=== PATIENT | male | born 1960 | race Two or more races ===

== ENCOUNTER 2024-06-26 00:12 | Inpatient (IN) | payer OTHER, MEDICAID ==
[~2024-06-26] VITALS: Ht 182.9 cm; Wt 67.0 kg
--- NOTE | 2024-06-26 01:48 | ED.PDOC ---
Musculoskeletal HPI Comments 64-year-old Male who came to ER via EMS for left hip pain. Patient states he was taking out the trash cans earlier today when he lost his balance and fell bad in his left hip. Patient states he was unable to get up after the fall. No head trauma or loss of consciousness noted. Chief Complaint: Lower Extremity Time Seen by MD: 01:47 Primary Care Provider: UNKNOWN NAME Reviewed Notes: Nurses Notes Allergies: Coded Allergies: NO KNOWN ALLERGIES (Unverified , 06/26/24) Information Source: Patient Mode of Arrival: EMS Location: Left Extremity Location: Hip Timing: Hours Prehospital treatment: None Severity: Moderate Able to Move Extremity: Yes Bear Weight: Limited Pain: Moderate Hand Dominance: Right Mechanism: Blunt Trauma Circumstances: Fall Onset of Symptoms: After Trauma Symptoms: Swelling, Pain History of: Hip Operation Associated signs and symptoms: Hip pain (left) Past Medical History PAST MEDICAL HISTORY: HTN Surgical History (Other): Right hip surgery Family History Family History: Reviewed,noncontributory to illness Social History Smoker: Non-Smoker Alcohol: Denies ETOH Use Drugs: Denies Drug Use Lives In: Home Constitutional: denies: chills, diaphoresis, fatigue, fever, malaise, sweats, weakness, others EENTM: denies: blurred vision, double vision, ear bleeding, ear discharge, ear drainage, ear pain, ear ringing, eye pain, eye redness, hearing loss, mouth pain, mouth swelling, nasal discharge, nose bleeding, nose congestion, nose pain, photophobia, tearing, throat pain, throat swelling, voice changes, others Respiratory: denies: cough, hemoptysis, orthopnea, SOB at rest, shortness of breath, SOB with excertion, stridor, wheezing, others Cardiovascular: denies: chest pain, dizzy spells, diaphoresis, Dyspnea on exertion, edema, irregular heart beat, left arm pain, lightheadedness, palpitations, PND, syncope, others Gastrointestinal: denies: abdomen distended, abdominal pain, blood streaked bowels, constipated, diarrhea, dysphagia, difficulty swallowing, hematemesis, melena, nausea, poor appetite, poor fluid intake, rectal bleeding, rectal pain, vomiting, others Genitourinary: denies: burning, dysuria, flank pain, frequency, hematuria, incontinence, penile discharge, penile sore, pain, testicle pain, testicle swelling, urgency, others Neurological: denies: dizziness, fainting, headache, left sided numbness, left sided weakness, numbness, paresthesia, pre-existing deficit, right sided numbness, right sided weakness, seizure, speech problems, tingling, tremors, weakness, others Musculoskeletal: reports: joint pain (Left hip); denies: back pain, gout, joint swelling, muscle pain, muscle stiffness, neck pain, others Integumetry: denies: bruises, change in color, change in hair/nails, dryness, laceration, lesions, lumps, rash, wounds, others Allergic/Immunocompromised: denies: Difficulty Healing, Frequent Infections, Hives, Itching, others Hematologic/Lymphatic: denies: anemia, blood clots, easy bleeding, easy bruising, swollen glands, others Endocrine: denies: excessive hunger, excessive sweating, excessive thirst, excessive urination, flushing, intolerance to cold, intolerance to heat, unexplained weight gain, unexplained weight loss, others Psychiatric: denies: anxiety, bipolar disorder, depression, hopeless, panic disorder, schizophrenia, sleepless, suicidal, others Physical Exam General Appearance: No Apparent Distress, Normal HEENT: Normal ENT Inspection, Pharynx Normal, TMs Normal Neck: Full Range of Motion, Non-Tender, Normal, Normal Inspection Respiratory: Chest Non-Tender, Lungs Clear, No Accessory Muscle Use, No Respiratory Distress, Normal Breath Sounds Cardiovascular: No Edema, No JVD, No Murmur, No Gallop, Normal Peripheral Puls es, Regular Rate/Rhythm Breast Exam: Deferred Gastrointestinal: No Organomegaly, Non Tender, No Pulsatile Mass, Normal Bowel Sounds, Soft Genitalia: Deferred Pelvic: Deferred Rectal: Deferred Extremities: No calf tenderness, Normal capillary refill, Normal inspection, Normal range of motion, Non-tender, No pedal edema, Tender (Left hip tender) Musculoskeletal : Apperance: Normal Neurologic: Alert, biomedical electronics technician II-XII nml as Tested, No Motor Deficits, Normal Affect, Normal Mood, No Sensory Deficits Cerebellar Function: Normal Reflexes: Normal Skin: Dry, Normal Color, Warm Lymphatic: No Adenopathy Was a procedure done? Was a procedure done?: No Differential Diagnosis EXT Differential Diagnosis: Fracture, Sprain, Strain X-Ray, Labs, Meds, VS Vital Signs Date Time Temp Pulse Resp B/P (MAP) Pulse Ox O2 Delivery O2 Flow Rate FiO2 06/26/24 00:17 98.7 62 18 110/73 (85) 97 Time of 1ST Reevaluation: 01:44 Reevaluation 1ST: Unchanged Patient Education/Counseling: Diagnosis, Treatment Family Education/Counseling: No Family Present Departure 1 Departure Time of Disposition: 02:57 (Patient with a left femur fracture. We will admit patient for orthopedic consultation) Impression: Primary Impression: Closed left femoral fracture Qualified Codes: S72.042A - Displaced fracture of base of neck of left femur, initial encounter for closed fracture Disposition: ADMITTED INPATIENT Admit to: Med Surg Condition: Guarded Critical Care Note Critical Care Time?: No Stability Stability form required: No Heart Score Heart Score: Heart Score Response (Comments) Value History N/A 0 EKG N/A 0 Age N/A 0 Risk Factors N/A 0 Troponin N/A 0 Total 0 I personally scribed for YAEL DAVID MD ([email or web address]) on 06/26/24 at 01:48. Electronically submitted by Modesto Gloria ([email or web address]). YAEL DAVID MD Jun 26, 2024 01:48
--- NOTE | 2024-06-26 02:22 | DVH ---
CLINICAL HISTORY: hip pain fall TECHNIQUE: CT of the abdomen and pelvis was performed without intravenous contrast. This exam was per formed according to our departmental dose optimization program. Up-to-date CT equipment and radiation dose reduction techniques are utilized as appropriate. WID: COMPARISON: None FINDINGS: Lower Thorax: Normal-sized heart without pericardial effusion. Linear bibasilar scarring or atelectas is. Liver and Biliary system: Prior cholecystectomy, otherwise unremarkable. Spleen: Unremarkable. Adrenal Glands and Kidneys: Normal adrenal glands. Tiny nonobstructing bilateral renal calculi. No hy dronephrosis. Pancreas and Retroperitoneum: Atrophic pancreas containing numerous calcifications. No grossly enlarg ed retroperitoneal lymph nodes. Aorta and Major Vessels: Aortoiliac vessels are normal in caliber with mild calcified atherosclerotic plaque. Bowel, Mesentery and Peritoneal space: The small and large bowel loops are normal caliber. Normal katarina endix. No free air or fluid collection. Pelvis: Streak artifact from the hardware in the right hip slightly limits evaluation of the pelvis. No grossly enlarged pelvic lymph nodes. Moderately distended urinary bladder. Abdominal wall and Osseous Structures: There are 4 screws which are partially threaded through the ri ght femoral neck. The hardware components are intact. There is bony demineralization. Minor lumbar s pondylosis. There is a nondisplaced fracture of the base of the left femoral neck with coxa vera angu lation of the proximal left femur. IMPRESSION: 1. Nondisplaced fracture of the base of the left femoral neck with coxa vera angulation of the proxim al left femur. 2. There are 4 partially threaded screws through the right femoral neck without hardware complication . 3. Chronic calcific pancreatitis. 4. Tiny nonobstructing bilateral renal calculi.
[2024-06-26] MEDS: ONDANSETRON HCL 4 MG/2 ML VIAL IV ONE (03:09)
[2024-06-26] MEDS: MORPHINE SULFATE 4 MG/ML SYR/VIAL IV ONE (03:10)
[2024-06-26 03:28] LABS: Basophils # (auto) 0 10 ^3/uL (0-0.2); Basophils % (auto) 0.2 % (0.0-2.0); Eosinophils # (auto) 0.3 10 ^3/uL (0-0.8); Eosinophils % (auto) 3.4 % (0.0-7.0); Hematocrit 34.5 % (41.0-53.0); Hemoglobin 11.6 g/dL (13.5-17.5); Lymphocytes # (auto) 0.5 10 ^3/uL (0.4-5.4); Mean Corpuscular Hemoglobin 31.1 pg (28.0-32.0); Mean Corpuscular Hgb Conc. 33.8 g/dL (32.0-36.0); Mean Corpuscular Volume 92.1 fL (80.0-100.0); Monocytes # (auto) 0.5 10 ^3/uL (0-1.3); Monocytes % (auto) 5.8 % (0.0-12.0); Neutrophils % (auto) 84.6 % (37.0-80.0); Platelet Count (auto) 157 10^3/uL (140-450); Red Blood Cells 3.74 10^6/uL (4.5-5.90); Red Cell Distribution Width 13.2 % (11.8-14.3); White Blood Cell 8.3 10^3/uL (4.4-10.8)
[2024-06-26] MEDS: SODIUM CHLORIDE 0.9% 1,000 ML IV ONE (03:34)
[2024-06-26 03:37] LABS: Chloride 113 mmol/L (98-107); Potassium 3.2 mmol/L (3.5-5.1); Sodium 143 mmol/L (136-145)
[2024-06-26 03:38] LABS: Anion Gap 5 (5-15); Calcium 8.6 mg/dL (8.7-10.4); Carbon Dioxide 25 mmol/L (20-31)
--- NOTE | 2024-06-26 03:42 | DVHHP2 ---
History of Present Illness Reason for Visit: Closed left femoral fracture History of Present Illness The patient is a 64-year-old male with past medical history of hypertension who presented to [facility] ED for evaluation fall injury. Patient reports he was taking out the trash cans earlier today when he lost his balance and fell hitting in his left hip. Patient developed left hip pain, states he was unable to get up after the fall. Patient was seen and evaluated in the ED, laboratory data shows WBC 8.3, hemoglobin 11.6, hematocrit 34.5, platelets 157, sodium 143, potassium 3.2, BUN 9, creatinine 0.95, glucose 134, calcium 8.6, blood pressure 110/73, heart rate 74, temperature 98.7 F, O2 saturation 97% on room air. Abdomen/pelvis CT revealing nondisplaced fracture of the base of the left femoral neck with coxa vera angulation of the proximal left femur; there are 4 partially threaded screws through the right femoral neck with heart where complication. Please see medication orders section in the computer. On my assessment, patient denied chest pain, no headache, no dizziness, no loss of consciousness, no diaphoresis, no shortness of breaths, no nausea, no vomiting, fever, no chills. Patient was admitted for further evaluation and medical management. Past Medical History Hypertension Past Surgical History Right hip surgery Family History Reviewed, noncontributory to the management of this case. Past Social History The patient lives at home, denies smoking, alcohol or illicit drugs abuse. Review of Systems Constitutional: Yes: Weakness; No: Fever, Chills, Sweats, Malaise, Other Eyes: No: Pain, Vision change, Conjunctivae inflammation, Eyelid inflammation, Other, Redness ENT: No: Ear pain, Ear discharge, Nose pain, Nose discharge, Nose congestion, Mouth pain, Mouth swelling, Throat pain, Throat swelling, Other Respiratory: No: Cough, Dry, Shortness of breath, SOB with excertion, Wheezing, Hemoptysis, Pleuritic Pain, Sputum, Wheezing, Other Cardiovascular: No: Chest Pain, Palpitations, Orthopnea, Paroxysmal Noc. Dyspnea, Edema, Lt Headedness, Other Gastrointestinal: No: Nausea, Vomiting, Abdominal Pain, Diarrhea, Constipation, Melena, Hematochezia, Other Genitourinary: No Dysuria, No Frequency, No Incontinence, No Hematuria, No Retention, No Other Musculoskeletal: other (Joint pain, left hip.); No: neck pain, shoulder pain, arm pain, back pain, hand pain, leg pain, foot pain Skin: No: Rash, Lesions, Jaundice, Bruising, Other Neurological: No: Weakness, Numbness, Incoordination, Change in speech, C onfusion, Seizures, Other Allergies: Coded Allergies: NO KNOWN ALLERGIES (Unverified , 06/26/24) Exam Vital Signs Vital Signs Date Time Temp Pulse Resp B/P (MAP) Pulse Ox O2 Delivery O2 Flow Rate FiO2 06/26/24 03:10 74 16 127/79 06/26/24 00:17 98.7 97 General Appearance: Alert, Oriented X3, Cooperative, No acute distress HEENT: Atraumatic, PERRLA, EOMI, Mucous membr. moist/pink Respiratory: Clear to auscultation, Normal air movement Cardiovascular: Regular rate, Normal S1, Normal S2, No murmurs Abdominal: Normal bowel sounds, Soft, No tenderness, No hepatospenomegaly, No masses Extremities: No clubbing, No cyanosis, Normal pulses, Other (Reports left hip tenderness.) Skin: No rashes, No breakdown, No significant lesion Neuro: Normal speech, Normal tone, Sensation intact, Cranial nerves 3-12 NL, Reflexes 2+, Other (Unsteady gait) Psych/Mental Status: Mental status NL, Mood NL Labs/Xrays Labs Test 06/26/24 03:15 Range/Units White Blood Count 8.3 4.4-10.8 10^3/uL Red Blood Count 3.74 L 4.5-5.90 10^6/uL Hemoglobin 11.6 L 13.5-17.5 g/dL Hematocrit 34.5 L 41.0-53.0 % Mean Corpuscular Volume 92.1 80.0-100.0 fL Mean Corpuscular Hemoglobin 31.1 28.0-32.0 pg Mean Corpuscular Hemoglobin Concent 33.8 32.0-36.0 g/dL Red Cell Distribution Width 13.2 11.8-14.3 % Platelet Count 157 140-450 10^3/uL Mean Platelet Volume 7.4 6.9-10.8 fL Neutrophils (%) (Auto) 84.6 H 37.0-80.0 % Lymphocytes (%) (Auto) 6.0 L 10.0-50.0 % Monocytes (%) (Auto) 5.8 0.0-12.0 % Eosinophils (%) (Auto) 3.4 0.0-7.0 % Basophils (%) (Auto) 0.2 0.0-2.0 % Neutrophils # (Auto) 7.0 1.6-8.6 10 ^3/uL Lymphocytes # (Auto) 0.5 0.4-5.4 10 ^3/uL Monocytes # (Auto) 0.5 0-1.3 10 ^3/uL Eosinophils # (Auto) 0.3 0-0.8 10 ^3/uL Basophils # (Auto) 0 0-0.2 10 ^3/uL Nucleated Red Blood Cells 0.0 % PATIENT: SHAHRIAR HUMPHREY JACCT: [id number] UNIT: [id number] : 1960 LOC: ER ROOM / BED: / AGE / SEX: 64 / M ADM STATUS: REG ER SERVICE 003 ORDERING PHYSICIAN: SHARLENE CASTILLO DO PROCEDURE(s): ABPL - CT AB PEL WO CON-NO ORAL OR IV REASON: hip pain fall ORDER NUMBER(s): [id number], ACCESSION NUMBER(s): [id number] CLINICAL HISTORY: hip pain fall TECHNIQUE: CT of the abdomen and pelvis was performed without intravenous contrast. This exam was performed according to our departmental dose optimization program. Up-to-date CT equipment and radiation dose reduction techniques are utilized as appropriate. WID: COMPARISON: None FINDINGS: Lower Thorax: Normal-sized heart without pericardial effusion. Linear bibasilar scarring or atelectasis. Liver and Biliary system: Prior cholecystectomy, otherwise unremarkable. Spleen: Unremarkable. Adrenal Glands and Kidneys: Normal adrenal glands. Tiny nonobstructing bilateral renal calculi. No hydronephrosis. Pancreas and Retroperitoneum: Atrophic pancreas containing numerous calcifications. No grossly enlarged retroperitoneal lymph nodes. Aorta and Major Vessels: Aortoiliac vessels are normal in caliber with mild calcified atherosclerotic plaque. Bowel, Mesentery and Peritoneal space: The small and large bowel loops are normal caliber. Normal appendix. No free air or fluid collection. Pelvis: Streak artifact from the hardware in the right hip slightly limits evaluation of the pelvis. No grossly enlarged pelvic lymph nodes. Moderately distended urinary bladder. Abdominal wall and Osseous Structures: There are 4 screws which are partially th readed through the right femoral neck. The hardware components are intact. There is bony demineralization. Minor lumbar spondylosis. There is a nondisplaced fracture of the base of the left femoral neck with coxa vera angulation of the proximal left femur. IMPRESSION: 1. Nondisplaced fracture of the base of the left femoral neck with coxa vera angulation of the proximal left femur. 2. There are 4 partially threaded screws through the right femoral neck without hardware complication. 3. Chronic calcific pancreatitis. 4. Tiny nonobstructing bilateral renal calculi. Assessment/Plan Assessment/Plan Fall with injury Closed left femoral fracture Hypokalemia Hyperglycemia Generalized weakness Nondisplaced fracture of base of neck of left femur, initial encounter for closed fracture Plan 1. Admit to telemetry unit 2. Breathing treatment 3. Pain control management 4. Management of fluids and electrolytes 5. Consultation for orthopedic 6. Diagnostic tests abdomen/pelvis CT 7. DVT prophylaxis-on Lovenox 8. Repeat labs CBC, CMP in a.m. 9. Continue with current medical management 10. Treatment plan discussed with patient and RN. Patient verbalized understanding. Plan discussed with: Patient, Other (RN) Problem List: (1) Fall with injury (2) Closed left femoral fracture (3) Hypokalemia (4) Hyperglycemia (5) Generalized weakness (6) Nondisplaced fracture of base of neck of left femur, initial encounter for closed fracture Date of Service: Jun 26, 2024 Billing Provider: TREVIN HODGES DNP Common Visit Codes: [id number]-[id number] INP/OBS CARE (HIGH) TREVIN HODGES DNP Jun 26, 2024 03:42
[2024-06-26 03:43] LABS: BUN/Creatinine Ratio 9.5 (10.0-20.0); Blood Urea Nitrogen 9 mg/dL (9-23); Glucose 134 mg/dL (74-106)
[2024-06-26] MEDS ORDERED: MORPHINE SULFATE INJ 2 MG/ml SYRG IV PRN (03:45)
[2024-06-26] MEDS ORDERED: NITROGLYCERIN 0.4 MG SL TAB SL PRN (03:45)
[2024-06-26] MEDS ORDERED: ONDANSETRON HCL 4 MG/2 ML VIAL IV PRN (03:45)
[2024-06-26] MEDS ORDERED: ACETAMINOPHEN 325 MG TAB PO PRN (03:45)
--- NOTE | 2024-06-26 03:52 | DVH ---
Examination: CXRP Clinical Indication: pre-op Comparison: None. Technique: Frontal radiograph of the chest was obtained. Findings: Lungs are clear and well expanded with no pulmonary infiltrate. There is no pneumothorax. The cardiomediastinal silhouette is within normal limits. No acute osseous abnormality is seen. Bilateral costophrenic angles are not imaged. Impression: 1. No acute cardiopulmonary disease is seen. 2. Bilateral costophrenic angles are not imaged. 3. Suggest follow-up. Electronically Signed 06/26/2024 03:45 Sruthi Iverson
[2024-06-26 03:53] LABS: INR 1.11 (0.9-1.15); Prothrombin Time 11.7 sec (9.3-11.8)
[2024-06-26] MEDS: SODIUM CHLORIDE 0.9% 1,000 ML IV SCH (04:23)
[2024-06-26] MEDS: POTASSIUM CHL 20 Meq TABLET PO ONE (05:12)
[2024-06-26 05:25] VITALS: PULSE 63; RESP 19; O2SAT 95
[2024-06-26] MEDS: MORPHINE SULFATE INJ 2 MG/ml SYRG IV PRN (08:41)
--- NOTE | 2024-06-26 10:07 | DVH ---
CLINICAL INDICATION: Fall TECHNIQUE: XY L FEMUR XRAY Comparison: None FINDINGS/IMPRESSION: Left intertrochanteric fracture is noted which appears nondisplaced.
--- NOTE | 2024-06-26 10:10 | DVHPN2 ---
Subjective Continues to complain of left hip pain Reviewed: Care Plan, H&P, Labs, Medications, Previous Orders, Radiology Changes from previous H/P or p: No Changes Objective Vitals Vital Signs Date Time Temp Pulse Resp B/P (MAP) Pulse Ox O2 Delivery O2 Flow Rate FiO2 06/26/24 09:50 64 15 127/62 (83) 98 06/26/24 05:25 Room Air* 0 21 06/26/24 00:29 98.7 98.7 Intake/Output Intake and Output 06/26/24 07:00 Intake Total 1120 ml Balance 1120 ml Intake IV Total 1120 ml General Appearance: Alert, Oriented X3, Cooperative, mild distress HEENT: Atraumatic Lungs: Clear to auscultation, Normal air movement Cardiovascular: Regular rate, Normal S1, Normal S2 Abdomen: Normal bowel sounds, Soft, No tenderness Extremities: Other (Swollen tender left hip and upper thigh) Neuro: Normal speech, Cranial nerves 3-12 NL Psych/Mental Status: Mental status NL, Mood NL Medications Current Medications Medications Dose Ordered Sig/Jonah Route Start Time Stop Time Status Last Admin Dose Admin Sodium Chloride 1,000 ml @ 60 mls/hr [id number] IV 06/26/24 03:45 06/26/24 04:23 60 MLS/HR Acetaminophen/ Hydrocodone Bitart 1 tab Q4HP PRN PO 06/26/24 03:45 Ondansetron HCl 4 mg Q4HP PRN IV 06/26/24 03:45 Docusate Sodium 100 mg BIDPRN PRN PO 06/26/24 03:45 Enoxaparin Sodium 40 mg DAILY SC 06/26/24 10:00 Acetaminophen 650 mg Q6HP PRN PO 06/26/24 03:45 Morphine Sulfate 2 mg Q4HPRN PRN IV 06/26/24 03:45 06/26/24 08:41 2 MG Nitroglycerin 0.4 mg Q5MINP PRN SL 06/26/24 03:45 Morphine Sulfate 2 mg Q30M PRN IV 06/26/24 03:45 Laboratory Results Laboratory Tests 06/26/24 03:15 Chemistry Test 06/26/24 03:15 Calcium Level 8.6 mg/dL (8.7-10.4) L Coagulation Test 06/26/24 03:15 Prothrombin Time 11.7 sec (9.3-11.8) Prothrombin Time INR 1.11 (0.9-1.15) Activated Partial Thromboplast Time 24.5 SEC (24.5-34.5) Labs and/or images reviewed: Labs reviewed by me, Image(s) reviewed by me Assessment/Plan Assessment/Plan A 64-year-old male patient; with past medical history of diabetes mellitus type 2 and right hip surgery; who presented to the emergency department after a fall and was found to have left hip fracture. #Nondisplaced left intertrochanteric fracture due to mechanical fall #Left hip pain due to fracture #Mechanical fall -Fall precautions -Orthopedic surgery consulted; surgery is planned tomorrow; ordered NPO after midnight -Continue pain management as needed -Continue DVT prophylaxis -Consulted Physical therapy and [facility] for discharge planning #Normocytic anemia; unclear if it is inflammatory or caused by the fracture -No signs of active bleeding at this time -Continue monitoring CBC daily #Suspected LOUIE; most likely due to vasomotor nephropathy #Hypokalemia with hypocalcemia in the setting of suspected LOUIE -Continue IV fluids -Replace electrolytes as needed -Avoid nephrotoxic agents -Continue monitoring #Diabetes mellitus type 2 -Started the patient on insulin sliding scale with hypoglycemia protocol -Continue monitoring Advanced care planning discussed with the patient for 22 minutes; full code. This medical document was created using an electronic medical record system with computerized dictation system. Although this document has been carefully reviewed, there might still be some phonetic and typographical errors. These areas are purely typographical due to imperfections of the software programs, and do not reflect any compromise in the patient's medical care. Plan discussed with: Patient, Other (Nurse) Date of Service: Jun 26, 2024 Billing Provider: CLEMENT HINES MD Common Visit Codes: 44850-[id number] INP/OBS CARE(HIGH) Secondary Visit Codes: 35349-[id number] CARE PLAN 30 MINUTES (22 minutes) CLEMENT HINES MD Jun 26, 2024 10:10
[2024-06-26] MEDS: ENOXAPARIN SOD 40 MG/0.4 ML SYRINGE SC SCH (10:57)
[2024-06-26] MEDS ORDERED: DEXTROSE (50%) 50ML SYRG IV PRN (15:00)
[2024-06-26] MEDS: ACCU-CHEK COMFORT CURVE STRIP VI SCH (17:26)
[2024-06-26] MEDS: InsuLIN REG 1unit/0.01ml Soln (100units/ml) SC SCH (17:29)
[2024-06-26] MEDS ORDERED: INSLISPI SC (20:03)
[2024-06-26] MEDS ORDERED: INSU100I4 SC (20:03)
[2024-06-26] MEDS ORDERED: INSU1INJ19 SC (20:04)
[2024-06-26 20:06] VITALS: PULSE 71; RESP 18
[2024-06-26 21:00] VITALS: BP 124/68; PULSE 67; RESP 18; TEMP 98.5; O2SAT 97
[2024-06-27] VITALS (25 sets, daily range): BP systolic 85–135; BP diastolic 49–79; PULSE 16–99; RESP 10–20; TEMP 96.8–100.2; O2SAT 65–100
[2024-06-27] MEDS: ceFAZolin 2 GM/D5W100ml 100 ML IV ONE (06:51)
[2024-06-27] MEDS ORDERED: MORPHINE SULF PF 5 MG/10 ML VIAL ONE (07:09)
[2024-06-27] MEDS ORDERED: fentaNYL CITRATE 100 MCG/2 ML VL ONE (07:10)
[2024-06-27] MEDS: BUPIVACAINE HCL 0.25% P/F 10 ML VIAL ONE (07:15)
[2024-06-27] MEDS ORDERED: MORPHINE SULFATE 4 MG/ML SYR/VIAL IV PRN ×2 (07:15)
[2024-06-27] MEDS ORDERED: MIDAZOLAM HCL 2MG/2ML 2ml VIAL (1mg/ml) ONE (07:15)
--- NOTE | 2024-06-27 07:15 | DVHPN2 ---
Date of Progress Note Date of Progress Note Date of Progress Note: 06/27/24 Date of Admission Date of Admission Date of Admission: Date of Admission: Jun 26, 2024 at 03:41 Overnight Events Overnight events Overnight Events Pt NPO, mackenzie pain on PO meds Past Medical History Past Medical History Past Medical History refer to H and P, hypokaemia, hypergylcemia, weakness Past Surgical History Past Surgical History Past Surgical History Right hip percutaneous pinnning for femoral neck fracture. Social History Social History Social History non-contirbutory Allergies: Coded Allergies: NO KNOWN ALLERGIES (Unverified , 06/26/24) Home Meds Reported Medications Insulin Glargine (Basaglar Kwikpen) 100 Unit/Ml Inj, 100 UNIT SC, INJ 06/26/24 Insulin Lispro (Human) (Humalog) 100 Unit/Ml Inj, 100 UNIT SC, INJ 06/26/24 Current Medications Current Medications Medications (Trade) Dose Ordered Sig/Jonah Route PRN Reason Start Time Stop Time Status Last Admin Enoxaparin Sodium (Lovenox) 40 mg DAILY SC 06/26/24 10:00 06/26/24 10:57 Diagnostic Test (Pha) (Accu-Chek Comfort Curve T) 1 strip ACHS 06/26/24 17:00 06/27/24 05:55 Insulin Human Regular (InsuLIN R) ACHS SC 06/26/24 17:00 06/27/24 05:55 Dextrose 50 ml UD PRN IV Blood Sugar LESS THAN 60 06/26/24 15:00 Morphine Sulfate 2 mg Q2HPRN PRN IV BREAKTHROUGH PAIN (7-10) 06/27/24 07:15 06/27/24 07:16 UNV Morphine Sulfate 2 mg Q4H PRN IV BREAKTHRU PAIN SCALE 7-10 06/27/24 07:15 06/27/24 11:16 UNV Physical Examination General Examination: Last Vital sign Vital Signs Date Time Temp Pulse Resp B/P (MAP) Pulse Ox O2 Delivery O2 Flow Rate FiO2 06/27/24 05:00 97.2 96 16 106/61 (76) 65 97.2 06/26/24 20:06 Room Air* 0 21 General: General: No apparent distress, appears comfortable. Cooperative. Extremities: Left hip pain in left groin with PROM NVI skin intact Skin: intact Neurological Examination: Neurological Examination: Mental Status: Cranial Nerves: Motor Examination: Reflexes: Sensory: Coordination: Gait: NVI Labs: Labs: Laboratory Tests Test 06/26/24 03:15 06/26/24 17:25 06/26/24 22:14 06/27/24 05:44 Range/Units White Blood Count 8.3 4.4-10.8 10^3/uL Red Blood Count 3.74 L 4.5-5.90 10^6/uL Hemoglobin 11.6 L 13.5-17.5 g/dL Hematocrit 34.5 L 41.0-53.0 % Mean Corpuscular Volume 92.1 80.0-100.0 fL Mean Corpuscular Hemoglobin 31.1 28.0-32.0 pg Mean Corpuscular Hemoglobin Concent 33.8 32.0-36.0 g/dL Red Cell Distribution Width 13.2 11.8-14.3 % Platelet Count 157 140-450 10^3/uL Mean Platelet Volume 7.4 6.9-10.8 fL Neutrophils (%) (Auto) 84.6 H 37.0-80.0 % Lymphocytes (%) (Auto) 6.0 L 10.0-50.0 % Monocytes (%) (Auto) 5.8 0.0-12.0 % Eosinophils (%) (Auto) 3.4 0.0-7.0 % Basophils (%) (Auto) 0.2 0.0-2.0 % Neutrophils # (Auto) 7.0 1.6-8.6 10 ^3/uL Lymphocytes # (Auto) 0.5 0.4-5.4 10 ^3/uL Monocytes # (Auto) 0.5 0-1.3 10 ^3/uL Eosinophils # (Auto) 0.3 0-0.8 10 ^3/uL Basophils # (Auto) 0 0-0.2 10 ^3/uL Nucleated Red Blood Cells 0.0 % Prothrombin Time 11.7 9.3-11.8 sec Prothrombin Time INR 1.11 0.9-1.15 Activated Partial Thromboplast Time 24.5 24.5-34.5 SEC Sodium Level 143 136-145 mmol/L Potassium Level 3.2 L 3.5-5.1 mmol/L Chloride Level 113 H 98-107 mmol/L Carbon Dioxide Level 25 20-31 mmol/L Anion Gap 5 5-15 Blood Urea Nitrogen 9 9-23 mg/dL Creatinine 0.95 0.700-1.30 mg/dL Glomerular Filtration Rate Calc 89 >90 mL/min BUN/Creatinine Ratio 9.5 L 10.0-20.0 Serum Glucose 134 H 74-106 mg/dL Calcium Level 8.6 L 8.7-10.4 mg/dL POC Glucose 254 H 227 H 220 H 70-106 mg/dl Test 06/27/24 06:10 Range/Units White Blood Count Pending Red Blood Count Pending Hemoglobin Pending Hematocrit Pending Mean Corpuscular Volume Pending Mean Corpuscular Hemoglobin Pending Mean Corpuscular Hemoglobin Concent Pending Red Cell Distribution Width Pending Platelet Count Pending Mean Platelet Volume Pending Neutrophils (%) (Auto) Pending Lymphocytes (%) (Auto) Pending Monocytes (%) (Auto) Pending Basophils (%) (Auto) Pending Neutrophils # (Auto) Pending Lymphocytes # (Auto) Pending Monocytes # (Auto) Pending Sodium Level Pending Potassium Level Pending Chloride Level Pending Carbon Dioxide Level Pending Anion Gap Pending Blood Urea Nitrogen Pending Creatinine Pending Glomerular Filtration Rate Calc Pending BUN/Creatinine Ratio Pending Serum Glucose Pending Calcium Level Pending Total Bilirubin Pending Aspartate Amino Transferase (AST) Pending Alanine Aminotransferase (ALT) Pending Alkaline Phosphatase Pending Total Protein Pending Albumin Pending Imaging Imaging: XR 06/26/24 Left hip 2V left proximal femur intertorchanteric/ basilar neck fracture Assessment/Plan Assessment/Plan Assessment and Plan:Kodak Butler is a 64 year old male who presents with left hip intertrochanteric / basilar neck fracture 1) pre-op clearance 2) NPO 3) surgery, ORIF left proximal femur fracture Plan discussed with: Patient KODAK RUIZ MD Jun 27, 2024 07:15
[2024-06-27 07:18] LABS: Basophils # (auto) 0 10 ^3/uL (0-0.2); Basophils % (auto) 0.5 % (0.0-2.0); Eosinophils # (auto) 0.1 10 ^3/uL (0-0.8); Eosinophils % (auto) 1.6 % (0.0-7.0); Hematocrit 34.1 % (41.0-53.0); Hemoglobin 11.4 g/dL (13.5-17.5); Lymphocytes % (auto) 15.3 % (10.0-50.0); Mean Corpuscular Hemoglobin 31.7 pg (28.0-32.0); Mean Corpuscular Hgb Conc. 33.5 g/dL (32.0-36.0); Mean Corpuscular Volume 94.7 fL (80.0-100.0); Monocytes # (auto) 0.6 10 ^3/uL (0-1.3); Monocytes % (auto) 9.4 % (0.0-12.0); Neutrophils # (auto) 4.8 10 ^3/uL (1.6-8.6); Neutrophils % (auto) 73.2 % (37.0-80.0); Platelet Count (auto) 131 10^3/uL (140-450); Red Cell Distribution Width 13.6 % (11.8-14.3); White Blood Cell 6.6 10^3/uL (4.4-10.8)
[2024-06-27 07:41] LABS: Alanine Aminotransferase 170 U/L (7-40); Albumin 2.9 g/dL (3.2-4.8); Alkaline Phosphatase 226 U/L (46-116); Anion Gap 5 (5-15); Aspartate Aminotransferase 110 U/L (13-40); BUN/Creatinine Ratio 10.9 (10.0-20.0); Blood Urea Nitrogen 11 mg/dL (9-23); Calcium 8.3 mg/dL (8.7-10.4); Carbon Dioxide 25 mmol/L (20-31); Chloride 105 mmol/L (98-107); Glucose 197 mg/dL (74-106)
[2024-06-27 07:42] LABS: Bilirubin, Total 0.7 mg/dL (0.2-1.0); Total Protein 5.2 g/dL (5.7-8.2)
[2024-06-27 07:46] LABS: Sodium 135 mmol/L (136-145)
--- NOTE | 2024-06-27 08:29 | DVHOP2 ---
Operative Report - 2 Report Details Date: 06/27/24 Preop Diagnosis: Left femur intertrochanteric fractrue Postop Diagnosis: same Surgeon: Kodak Sanz MD Agricultural Pilot: none Anesthesiologist: Dr Robbins Anesthesia: Regional Drains: none Implant: IM hip nii with two proximal screws and one static distal interlock Consent: The patient was informed of the risks and benefits of the procedure. These include but are not limited to complications of anesthesia, postoperative infection, incomplete relief of symptoms, recurrence of symptoms, damage to blood vessels, nerves and tendons, deep venous thrombosis, pulmonary embolism and possible need for repeat surgery in the future. Complications: none Estimated Blood Loss: 50 cc Fluids: 1 L crystalloid Findings: above Indications for Surgery: unstable fracture of left proxiaml femur with requisite bedrest without fixation and comordbidities associated with bedrest Name of Procedure Performed open reduction internal fixation of left intertrochanteric femur fracture Procedure Details Procedure Details: Patient brought into the operating room given Ancef 1 g IV piggyback preoperatively received spinal anesthetic without complication by Dr. Thompson got T1 GA transferred to the fracture table well-padded peroneal post left leg well- padded boot for traction right leg well leg ohara well padded saved about placed around waist on C-arm fluoro used to achieve reduction fracture with traction internal rotation flexion 80 adduction a C-arm fluoro taken AP and lateral view showing good overall alignment of fracture sterile prep amputate his prep and drape of left hip and lower extremity time-out performed confirmation left side correct side after review of operative consent history and physical and my initials on left buttock 2 cm to 3 cm incision made 5 cm proximal to tip of greater trochanter sharp dissection through skin down to deep fascia sharp division of deep fascia blunt dissection down to the tip of greater trochanter guide pin placed into tip of tip of greater trochanter C-arm fluoro confirmed good placement of guide pin and she reaming performed then placement of intramedullary nii then proximal screw guide positioned and 2 guide pins placed into femoral neck and then 2 screws placed into femoral neck under C-arm fluoro guidance then distal interlock screw placed with screw screw guide C-arm fluoro taken an AP and lateral view showing anatomic alignment of fracture and good placement of hardware irrigation then performed excellent hemostasis noted closure of deep fascia with 0 Vicryl subcutaneous 2-0 Vicryl 2-0 Vicryl skin luan fluffs ABD paper tape no drainage specimens complications. Specimen: none Condition Stable Disposition Still a Patient KODAK SANZ MD Jun 27, 2024 08:29
[2024-06-27] MEDS: D5W/SOD CHL 0.45%/KCL 20MEQ 1,000 ML IV SCH (12:03)
--- NOTE | 2024-06-27 13:12 | DVHPN2 ---
Subjective Underwent repair; pain controlled with pain killers; enjoying his meal Reviewed: Care Plan, H&P, Labs, Medications, Previous Orders, Radiology Changes from previous H/P or p: Changes Objective Vitals Vital Signs Date Time Temp Pulse Resp B/P (MAP) Pulse Ox O2 Delivery O2 Flow Rate FiO2 06/27/24 11:32 61 16 98 06/27/24 10:38 98.9 104/71 (82) 98.9 06/27/24 08:35 Room Air 06/27/24 08:17 10.0 100 Intake/Output Intake and Output 06/27/24 07:00 Intake Total 105 ml Output Total 700 ml Balance -595 ml Intake Oral 105 ml Output Urine Total 700 ml # Voids 2 General Appearance: Alert, Oriented X3, Cooperative, No acute distress HEENT: Atraumatic Lungs: Clear to auscultation, Normal air movement Cardiovascular: Regular rate, Normal S1, Normal S2 Abdomen: Normal bowel sounds, Soft, No tenderness Extremities: Other (Clean surgical wound over left hip with no bleeding/discharge) Neuro: Normal speech, Cranial nerves 3-12 NL Psych/Mental Status: Mental status NL, Mood NL Medications Current Medications Medications Dose Ordered Sig/Jonah Route Start Time Stop Time Status Last Admin Dose Admin Sodium Chloride 1,000 ml @ 60 mls/hr [id number] IV 06/26/24 03:45 06/26/24 20:25 60 MLS/HR Acetaminophen/ Hydrocodone Bitart 1 tab Q4HP PRN PO 06/26/24 03:45 Ondansetron HCl 4 mg Q4HP PRN IV 06/26/24 03:45 Docusate Sodium 100 mg BIDPRN PRN PO 06/26/24 03:45 Enoxaparin Sodium 40 mg DAILY SC 06/26/24 10:00 06/27/24 11:46 40 MG Acetaminophen 650 mg Q6HP PRN PO 06/26/24 03:45 Morphine Sulfate 2 mg Q4HPRN PRN IV 06/26/24 03:45 06/27/24 03:33 2 MG Nitroglycerin 0.4 mg Q5MINP PRN SL 06/26/24 03:45 Morphine Sulfate 2 mg Q30M PRN IV 06/26/24 03:45 Diagnostic Test (Pha) 1 strip ACHS 06/26/24 17:00 06/27/24 11:24 1 STRIP Insulin Human Regular ACHS SC 06/26/24 17:00 06/27/24 11:21 4 UNITS Dextrose 50 ml UD PRN IV 06/26/24 15:00 Potassium Chloride/Dextrose/ Sod Cl 1,000 ml @ 150 mls/hr Q6H40M IV 06/27/24 08:30 06/27/24 12:03 150 MLS/HR Cefazolin Sodium 50 ml @ 50 mls/hr Q8HR IV 06/27/24 14:00 06/27/24 22:59 Cancel Cefazolin Sodium 50 ml @ 50 mls/hr Q8HR IV 06/27/24 14:00 Cefazolin Sodium 50 ml @ 50 mls/hr Q8HR IV 06/27/24 14:00 06/27/24 22:59 Laboratory Results Laboratory Tests 06/27/24 06:10 Chemistry Test 06/27/24 06:10 Albumin 2.9 g/dL (3.2-4.8) L Calcium Level 8.3 mg/dL (8.7-10.4) L Total Protein 5.2 g/dL (5.7-8.2) L LFT Test 06/27/24 06:10 Alanine Aminotransferase (ALT) 170 U/L (7-40) H Alkaline Phosphatase 226 U/L (46-116) H Aspartate Amino Transferase (AST) 110 U/L (13-40) H Total Bilirubin 0.7 mg/dL (0.2-1.0) Labs and/or images reviewed: Labs reviewed by me, Image(s) reviewed by me Assessment/Plan Assessment/Plan A 64-year-old male patient; with past medical history of diabetes mellitus type 2 and right hip surgery; who presented to the emergency department after a fall and was found to have left hip fracture. #Nondisplaced left intertrochanteric fracture due to mechanical fall s/p open reduction internal fixation of left intertrochanteric femur fracture this morning #Left hip pain due to fracture #Mechanical fall #Elevated LFTs due to the fracture -Fall precautions -Orthopedic surgery on board -Continue pain management as needed -Continue DVT prophylaxis -Consulted Physical therapy and Supervisor [employer] for discharge planning -Avoid hepatotoxic agents -Continue monitoring #Normocytic anemia; unclear if it is inflammatory or caused by the fracture -No signs of active bleeding at this time -Continue monitoring CBC daily #Suspected LOUIE; most likely due to vasomotor nephropathy; worsened #Hypokalemia with hypocalcemia in the setting of suspected LOUIE; hypokalemia resolved; hypocalcemia worsened -Continue IV fluids -Replace electrolytes as needed -Avoid nephrotoxic agents -Continue monitoring #Diabetes mellitus type 2 -Insulin sliding scale with hypoglycemia protocol -Continue monitoring This medical document was created using an electronic medical record system with computerized dictation system. Although this document has been carefully reviewed, there might still be some phonetic and typographical errors. These areas are purely typographical due to imperfections of the software programs, and do not reflect any compromise in the patient's medical care. Plan discussed with: Patient, Other (Nurse) My Orders Orders - CLEMENT HINES MD Procedure Category Date Status Time Glucose Blood PHA 06/26/24 In Process (Accu-Chek Comfort 17:00 Insulin R (Human) PHA 06/26/24 In Process (Insulin R) 17:00 Dextrose 50% Syringe PHA 06/26/24 In Process 15:00 * Supervisor [employer] CONS 06/26/24 Transmitted Consult Pt Request For Service PT 06/26/24 Logged 15:02 Comprehensive LAB 06/28/24 Verified Metabolic Panel 04:00 Date of Service: Jun 27, 2024 Billing Provider: CLEMENT HINES MD Common Visit Codes: [id number] INP/OBS CARE(HIGH) CLEMENT HINES MD Jun 27, 2024 13:12
--- NOTE | 2024-06-27 13:21 | DVH ---
EXAM: XY L HIP 1V XRAY, XY C ARM FLUOROSCOPY UP TO 60MIN HISTORY: LEFT HIP NAIL FLUOROSCOPY TIME: 35.6 seconds Dose: 5.0 mGy FLUOROSCOPY IMAGES: 4 TECHNIQUE: Intraoperative radiographs of the left hip were obtained. COMPARISON: None FINDINGS/IMPRESSION: Refer to intraoperative report for further evaluation.
[2024-06-27] MEDS ORDERED: ceFAZolin 1GM/50ML 50 ML IV SCH (14:00)
[2024-06-27] MEDS: ceFAZolin 1GM/50ML 50 ML IV SCH ×2 (14:00→18:26)
[2024-06-27] MEDS: HYDROcodone-ACET 5/325MG TAB PO PRN (16:04)
[2024-06-28] VITALS (19 sets, daily range): BP systolic 102–128; BP diastolic 52–71; PULSE 58–92; RESP 16–22; TEMP 97.1–99.7; O2SAT 94–99
[2024-06-28 06:11] LABS: Basophils # (auto) 0 10 ^3/uL (0-0.2); Basophils % (auto) 0.2 % (0.0-2.0); Eosinophils # (auto) 0.1 10 ^3/uL (0-0.8); Eosinophils % (auto) 1.8 % (0.0-7.0); Hematocrit 28.6 % (41.0-53.0); Hemoglobin 9.7 g/dL (13.5-17.5); Lymphocytes # (auto) 0.8 10 ^3/uL (0.4-5.4); Lymphocytes % (auto) 10.9 % (10.0-50.0); Mean Corpuscular Hemoglobin 32.1 pg (28.0-32.0); Mean Corpuscular Hgb Conc. 33.8 g/dL (32.0-36.0); Mean Corpuscular Volume 94.7 fL (80.0-100.0); Monocytes # (auto) 0.9 10 ^3/uL (0-1.3); Monocytes % (auto) 12.9 % (0.0-12.0); Neutrophils # (auto) 5.3 10 ^3/uL (1.6-8.6); Neutrophils % (auto) 74.2 % (37.0-80.0); Nucleated Red Blood Cells % 0.1 %; Platelet Count (auto) 111 10^3/uL (140-450); Red Blood Cells 3.02 10^6/uL (4.5-5.90); Red Cell Distribution Width 13.3 % (11.8-14.3); White Blood Cell 7.1 10^3/uL (4.4-10.8)
[2024-06-28 06:27] LABS: Alanine Aminotransferase 96 U/L (7-40); Albumin 2.6 g/dL (3.2-4.8); Alkaline Phosphatase 196 U/L (46-116); Anion Gap 4 (5-15); Aspartate Aminotransferase 42 U/L (13-40); BUN/Creatinine Ratio 12.7 (10.0-20.0); Bilirubin, Total 0.4 mg/dL (0.2-1.0); Blood Urea Nitrogen 13 mg/dL (9-23); Calcium 7.7 mg/dL (8.7-10.4); Carbon Dioxide 25 mmol/L (20-31); Chloride 105 mmol/L (98-107); Potassium 4.6 mmol/L (3.5-5.1); Sodium 134 mmol/L (136-145); Total Protein 4.3 g/dL (5.7-8.2)
[2024-06-28 06:33] LABS: Glucose 352 mg/dL (74-106)
--- NOTE | 2024-06-28 11:26 | DVHPN2 ---
Subjective Complaining of left hip pain Reviewed: Care Plan, H&P, Labs, Medications, Previous Orders, Radiology Changes from previous H/P or p: Changes Objective Vitals Vital Signs Date Time Temp Pulse Resp B/P (MAP) Pulse Ox O2 Delivery O2 Flow Rate FiO2 06/28/24 10:29 72 16 114/66 06/28/24 09:32 95 06/28/24 09:00 99.7 99.7 06/27/24 20:00 Room Air* 0 21 Intake/Output Intake and Output 06/28/24 07:00 Intake Total 3530 ml Output Total 425 ml Balance 3105 ml Intake Oral 1380 ml IV Total 2150 ml Output Urine Total 425 ml # Voids 3 # Bowel Movements 1 General Appearance: Alert, Oriented X3, Cooperative, No acute distress HEENT: Atraumatic Lungs: Clear to auscultation, Normal air movement Cardiovascular: Regular rate, Normal S1, Normal S2 Abdomen: Normal bowel sounds, Soft, No tenderness Extremities: Other (Clean surgical wound over left hip with no bleeding/discharge) Neuro: Normal speech, Cranial nerves 3-12 NL Psych/Mental Status: Mental status NL, Mood NL Medications Current Medications Medications Dose Ordered Sig/Jonah Route Start Time Stop Time Status Last Admin Dose Admin Sodium Chloride 1,000 ml @ 60 mls/hr [id number] IV 06/26/24 03:45 06/27/24 18:26 60 MLS/HR Acetaminophen/ Hydrocodone Bitart 1 tab Q4HP PRN PO 06/26/24 03:45 06/28/24 02:50 1 TAB Ondansetron HCl 4 mg Q4HP PRN IV 06/26/24 03:45 Docusate Sodium 100 mg BIDPRN PRN PO 06/26/24 03:45 Enoxaparin Sodium 40 mg DAILY SC 06/26/24 10:00 06/28/24 10:00 40 MG Acetaminophen 650 mg Q6HP PRN PO 06/26/24 03:45 Morphine Sulfate 2 mg Q4HPRN PRN IV 06/26/24 03:45 06/28/24 09:59 2 MG Nitroglycerin 0.4 mg Q5MINP PRN SL 06/26/24 03:45 Morphine Sulfate 2 mg Q30M PRN IV 06/26/24 03:45 Diagnostic Test (Pha) 1 strip ACHS 06/26/24 17:00 06/28/24 09:53 1 STRIP Insulin Human Regular ACHS SC 06/26/24 17:00 06/28/24 06:45 8 UNITS Dextrose 50 ml UD PRN IV 06/26/24 15:00 Potassium Chloride/Dextrose/ Sod Cl 1,000 ml @ 150 mls/hr Q6H40M IV 06/27/24 08:30 06/28/24 11:16 150 MLS/HR Cefazolin Sodium 50 ml @ 50 mls/hr Q8HR IV 06/27/24 14:00 06/27/24 22:59 Cancel Cefazolin Sodium 50 ml @ 50 mls/hr Q8HR IV 06/27/24 14:00 06/28/24 05:31 50 MLS/HR Laboratory Results Laboratory Tests 06/28/24 05:20 Chemistry Test 06/28/24 05:20 Albumin 2.6 g/dL (3.2-4.8) L Calcium Level 7.7 mg/dL (8.7-10.4) L Total Protein 4.3 g/dL (5.7-8.2) L LFT Test 06/28/24 05:20 Alanine Aminotransferase (ALT) 96 U/L (7-40) H Alkaline Phosphatase 196 U/L (46-116) H Aspartate Amino Transferase (AST) 42 U/L (13-40) H Total Bilirubin 0.4 mg/dL (0.2-1.0) Labs and/or images reviewed: Labs reviewed by me, Image(s) reviewed by me Assessment/Plan Assessment/Plan A 64-year-old male patient; with past medical history of diabetes mellitus type 2 and right hip surgery; who presented to the emergency department after a fall and was found to have left hip fracture. #Nondisplaced left intertrochanteric fracture due to mechanical fall s/p open reduction internal fixation of left intertrochanteric femur fracture on 06/27/2024 #Left hip pain due to fracture #Mechanical fall #Elevated LFTs due to the fracture -Fall precautions -Orthopedic surgery on board -Continue pain management as needed -Continue DVT prophylaxis -Physical therapy and Flight Technician onboard -Avoid hepatotoxic agents -Continue monitoring #Normocytic anemia; unclear if it is inflammatory or caused by the fracture -Hemoglobin dropped; most likely related to the procedure -Continue monitoring CBC daily #Suspected LOUIE; most likely due to vasomotor nephropathy; worsened #Hypokalemia with hypocalcemia in the setting of suspected LOUIE; hypokalemia resolved; hypocalcemia worsened -Continue IV fluids -Replace electrolytes as needed -Avoid nephrotoxic agents -Continue monitoring #Diabetes mellitus type 2 -Insulin sliding scale with hypoglycemia protocol -Started long-acting insulin -Continue monitoring This medical document was created using an electronic medical record system with computerized dictation system. Although this document has been carefully reviewed, there might still be some phonetic and typographical errors. These areas are purely typographical due to imperfections of the software programs, and do not reflect any compromise in the patient's medical care. Plan discussed with: Patient, Other (Nurse) My Orders Orders - CLEMENT HINES MD Procedure Category Date Status Time Transfer Orders XFER 06/28/24 Transmitted 11:25 Complete Blood Count LAB 06/29/24 Verified 04:00 Comprehensive LAB 06/29/24 Verified Metabolic Panel 04:00 Date of Service: Jun 28, 2024 Billing Provider: CLEMENT HINES MD Common Visit Codes: [id number] INP/OBS CARE(HIGH) CLEMENT HINES MD Jun 28, 2024 11:26
[2024-06-28] MEDS: INSULIN LANTUS (GLARGINE) 1 /0.01ml (100units/ml) SC SCH (21:55)
[2024-06-28] MEDS: CALCIUM GLUC 1,000mg/50ml-NS 50 ML IV ONE (23:13)
[2024-06-29] VITALS (8 sets, daily range): BP systolic 97–134; BP diastolic 48–73; PULSE 68–98; RESP 15–20; TEMP 98.1–98.7; O2SAT 94–98
[2024-06-29] MEDS: DOCUSATE SOD 100 MG CAP PO PRN (00:49)
[2024-06-29 06:09] LABS: Alanine Aminotransferase 63 U/L (7-40); Albumin 2.8 g/dL (3.2-4.8); Alkaline Phosphatase 164 U/L (46-116); Anion Gap 6 (5-15); Aspartate Aminotransferase 27 U/L (13-40); BUN/Creatinine Ratio 8.3 (10.0-20.0); Bilirubin, Total 0.3 mg/dL (0.2-1.0); Blood Urea Nitrogen 9 mg/dL (9-23); Calcium 8.3 mg/dL (8.7-10.4); Carbon Dioxide 26 mmol/L (20-31); Chloride 102 mmol/L (98-107); Glucose 309 mg/dL (74-106); Potassium 4.5 mmol/L (3.5-5.1); Sodium 134 mmol/L (136-145)
--- NOTE | 2024-06-29 08:03 | DVHPN2 ---
Date of Progress Note Date of Progress Note Date of Progress Note: 06/29/24 Date of Admission Date of Admission Date of Admission: Date of Admission: Jun 26, 2024 at 03:41 Overnight Events Overnight events Overnight Events [facility] POs well, able to void Past Medical History Past Medical History Past Medical History refer to H and P, hypokaemia, hypergylcemia, weakness Past Surgical History Past Surgical History Past Surgical History Right hip percutaneous pinnning for femoral neck fracture. Social History Social History Social History non-contirbutory Allergies: Coded Allergies: NO KNOWN ALLERGIES (Unverified , 06/26/24) Home Meds Reported Medications Insulin Glargine (Basaglar Kwikpen) 100 Unit/Ml Inj, 100 UNIT SC, INJ 06/26/24 Insulin Lispro (Human) (Humalog) 100 Unit/Ml Inj, 100 UNIT SC, INJ 06/26/24 Current Medications Current Medications Medications (Trade) Dose Ordered Sig/Jonah Route PRN Reason Start Time Stop Time Status Last Admin Insulin Glargine (Lantus) 12 units HS SC 06/28/24 22:00 06/28/24 21:55 Physical Examination General Examination: Last Vital sign Vital Signs Date Time Temp Pulse Resp B/P (MAP) Pulse Ox O2 Delivery O2 Flow Rate FiO2 06/29/24 05:00 98.3 77 17 123/62 (82) 98 98.3 06/28/24 20:00 Room Air* 0 21 General: General: No apparent distress, appears comfortable. Cooperative. HEENT: Alert Oriented x4 Extremities: Left LE, mild groin pain with PROM, incision not draining Skin: intact, no drainage from left lateral hip surgical site Neurological Examination: Neurological Examination: Mental Status: Cranial Nerves: Motor Examination: Reflexes: Sensory: Coordination: Gait: NVI Labs: Labs: Laboratory Tests Test 06/26/24 03:15 06/26/24 17:25 06/26/24 22:14 06/27/24 05:44 Range/Units White Blood Count 8.3 4.4-10.8 10^3/uL Red Blood Count 3.74 L 4.5-5.90 10^6/uL Hemoglobin 11.6 L 13.5-17.5 g/dL Hematocrit 34.5 L 41.0-53.0 % Mean Corpuscular Volume 92.1 80.0-100.0 fL Mean Corpuscular Hemoglobin 31.1 28.0-32.0 pg Mean Corpuscular Hemoglobin Concent 33.8 32.0-36.0 g/dL Red Cell Distribution Width 13.2 11.8-14.3 % Platelet Count 157 140-450 10^3/uL Mean Platelet Volume 7.4 6.9-10.8 fL Neutrophils (%) (Auto) 84.6 H 37.0-80.0 % Lymphocytes (%) (Auto) 6.0 L 10.0-50.0 % Monocytes (%) (Auto) 5.8 0.0-12.0 % Eosinophils (%) (Auto) 3.4 0.0-7.0 % Basophils (%) (Auto) 0.2 0.0-2.0 % Neutrophils # (Auto) 7.0 1.6-8.6 10 ^3/uL Lymphocytes # (Auto) 0.5 0.4-5.4 10 ^3/uL Monocytes # (Auto) 0.5 0-1.3 10 ^3/uL Eosinophils # (Auto) 0.3 0-0.8 10 ^3/uL Basophils # (Auto) 0 0-0.2 10 ^3/uL Nucleated Red Blood Cells 0.0 % Prothrombin Time 11.7 9.3-11.8 sec Prothrombin Time INR 1.11 0.9-1.15 Activated Partial Thromboplast Time 24.5 24.5-34.5 SEC Sodium Level 143 136-145 mmol/L Potassium Level 3.2 L 3.5-5.1 mmol/L Chloride Level 113 H 98-107 mmol/L Carbon Dioxide Level 25 20-31 mmol/L Anion Gap 5 5-15 Blood Urea Nitrogen 9 9-23 mg/dL Creatinine 0.95 0.700-1.30 mg/dL Glomerular Filtration Rate Calc 89 >90 mL/min BUN/Creatinine Ratio 9.5 L 10.0-20.0 Serum Glucose 134 H 74-106 mg/dL Calcium Level 8.6 L 8.7-10.4 mg/dL POC Glucose 254 H 227 H 220 H 70-106 mg/dl Test 06/27/24 06:10 06/27/24 11:20 06/27/24 18:36 06/27/24 22:07 Range/Units White Blood Count 6.6 4.4-10.8 10^3/uL Red Blood Count 3.60 L 4.5-5.90 10^6/uL Hemoglobin 11.4 L 13.5-17.5 g/dL Hematocrit 34.1 L 41.0-53.0 % Mean Corpuscular Volume 94.7 80.0-100.0 fL Mean Corpuscular Hemoglobin 31.7 28.0-32.0 pg Mean Corpuscular Hemoglobin Concent 33.5 32.0-36.0 g/dL Red Cell Distribution Width 13.6 11.8-14.3 % Platelet Count 131 L 140-450 10^3/uL Mean Platelet Volume 7.9 6.9-10.8 fL Neutrophils (%) (Auto) 73.2 37.0-80.0 % Lymphocytes (%) (Auto) 15.3 10.0-50.0 % Monocytes (%) (Auto) 9.4 0.0-12.0 % Eosinophils (%) (Auto) 1.6 0.0-7.0 % Basophils (%) (Auto) 0.5 0.0-2.0 % Neutrophils # (Auto) 4.8 1.6-8.6 10 ^3/uL Lymphocytes # (Auto) 1.0 0.4-5.4 10 ^3/uL Monocytes # (Auto) 0.6 0-1.3 10 ^3/uL Eosinophils # (Auto) 0.1 0-0.8 10 ^3/uL Basophils # (Auto) 0 0-0.2 10 ^3/uL Nucleated Red Blood Cells 0.0 % Sodium Level 135 #L 136-145 mmol/L Potassium Level 4.0 3.5-5.1 mmol/L Chloride Level 105 98-107 mmol/L Carbon Dioxide Level 25 20-31 mmol/L Anion Gap 5 5-15 Blood Urea Nitrogen 11 9-23 mg/dL Creatinine 1.01 0.700-1.30 mg/dL Glomerular Filtration Rate Calc 83 >90 mL/min BUN/Creatinine Ratio 10.9 10.0-20.0 Serum Glucose 197 H 74-106 mg/dL Calcium Level 8.3 L 8.7-10.4 mg/dL Total Bilirubin 0.7 0.2-1.0 mg/dL Aspartate Amino Transferase (AST) 110 H 13-40 U/L Alanine Aminotransferase (ALT) 170 H 7-40 U/L Alkaline Phosphatase 226 H 46-116 U/L Total Protein 5.2 L 5.7-8.2 g/dL Albumin 2.9 L 3.2-4.8 g/dL POC Glucose 211 H 351 H 279 H 70-106 mg/dl Test 06/28/24 05:20 06/28/24 06:28 06/28/24 11:14 06/28/24 17:30 Range/Units White Blood Count 7.1 4.4-10.8 10^3/uL Red Blood Count 3.02 L 4.5-5.90 10^6/uL Hemoglobin 9.7 L 13.5-17.5 g/dL Hematocrit 28.6 #L 41.0-53.0 % Mean Corpuscular Volume 94.7 80.0-100.0 fL Mean Corpuscular Hemoglobin 32.1 H 28.0-32.0 pg Mean Corpuscular Hemoglobin Concent 33.8 32.0-36.0 g/dL Red Cell Distribution Width 13.3 11.8-14.3 % Platelet Count 111 L 140-450 10^3/uL Mean Platelet Volume 8.3 6.9-10.8 fL Neutrophils (%) (Auto) 74.2 37.0-80.0 % Lymphocytes (%) (Auto) 10.9 10.0-50.0 % Monocytes (%) (Auto) 12.9 H 0.0-12.0 % Eosinophils (%) (Auto) 1.8 0.0-7.0 % Basophils (%) (Auto) 0.2 0.0-2.0 % Neutrophils # (Auto) 5.3 1.6-8.6 10 ^3/uL Lymphocytes # (Auto) 0.8 0.4-5.4 10 ^3/uL Monocytes # (Auto) 0.9 0-1.3 10 ^3/uL Eosinophils # (Auto) 0.1 0-0.8 10 ^3/uL Basophils # (Auto) 0 0-0.2 10 ^3/uL Nucleated Red Blood Cells 0.1 % Sodium Level 134 L 136-145 mmol/L Potassium Level 4.6 3.5-5.1 mmol/L Chloride Level 105 98-107 mmol/L Carbon Dioxide Level 25 20-31 mmol/L Anion Gap 4 L 5-15 Blood Urea Nitrogen 13 9-23 mg/dL Creatinine 1.02 0.700-1.30 mg/dL Glomerular Filtration Rate Calc 82 >90 mL/min BUN/Creatinine Ratio 12.7 10.0-20.0 Serum Glucose 352 #H 74-106 mg/dL Calcium Level 7.7 L 8.7-10.4 mg/dL Total Bilirubin 0.4 0.2-1.0 mg/dL Aspartate Amino Transferase (AST) 42 H 13-40 U/L Alanine Aminotransferase (ALT) 96 H 7-40 U/L Alkaline Phosphatase 196 H 46-116 U/L Total Protein 4.3 L 5.7-8.2 g/dL Albumin 2.6 L 3.2-4.8 g/dL POC Glucose 325 H 369 H 267 H 70-106 mg/dl Test 06/28/24 21:29 06/29/24 05:28 06/29/24 05:30 Range/Units POC Glucose 342 H 301 H 70-106 mg/dl White Blood Count Pending Red Blood Count Pending Hemoglobin Pending Hematocrit Pending Mean Corpuscular Volume Pending Mean Corpuscular Hemoglobin Pending Mean Corpuscular Hemoglobin Concent Pending Red Cell Distribution Width Pending Platelet Count Pending Mean Platelet Volume Pending Neutrophils (%) (Auto) Pending Lymphocytes (%) (Auto) Pending Monocytes (%) (Auto) Pending Basophils (%) (Auto) Pending Neutrophils # (Auto) Pending Lymphocytes # (Auto) Pending Monocytes # (Auto) Pending Sodium Level 134 L 136-145 mmol/L Potassium Level 4.5 3.5-5.1 mmol/L Chloride Level 102 98-107 mmol/L Carbon Dioxide Level 26 20-31 mmol/L Anion Gap 6 5-15 Blood Urea Nitrogen 9 9-23 mg/dL Creatinine 1.08 0.700-1.30 mg/dL Glomerular Filtration Rate Calc 76 >90 mL/min BUN/Creatinine Ratio 8.3 L 10.0-20.0 Serum Glucose 309 H 74-106 mg/dL Calcium Level 8.3 L 8.7-10.4 mg/dL Total Bilirubin 0.3 0.2-1.0 mg/dL Aspartate Amino Transferase (AST) 27 13-40 U/L Alanine Aminotransferase (ALT) 63 H 7-40 U/L Alkaline Phosphatase 164 H 46-116 U/L Total Protein 5.0 L 5.7-8.2 g/dL Albumin 2.8 L 3.2-4.8 g/dL Assessment/Plan Assessment/Plan Assessment and Plan:Kodak Butler is a 64 year old male POD 2 s/p ORIF left proximal femur fracture, pt doing well 1) recommend home PT 2) clear for dc from ortho view 3) follow up ortho clinic 2 wks, XR 2V left hip 4) WBAT left LE with full assist Plan discussed with: Patient KODAK RUIZ MD Jun 29, 2024 08:03
[2024-06-29 11:47] LABS: Basophils # (auto) 0 10 ^3/uL (0-0.2); Basophils % (auto) 0.3 % (0.0-2.0); Eosinophils # (auto) 0.1 10 ^3/uL (0-0.8); Eosinophils % (auto) 1.2 % (0.0-7.0); Hematocrit 30.7 % (41.0-53.0); Hemoglobin 10.3 g/dL (13.5-17.5); Lymphocytes # (auto) 0.8 10 ^3/uL (0.4-5.4); Lymphocytes % (auto) 8.9 % (10.0-50.0); Mean Corpuscular Hemoglobin 31.5 pg (28.0-32.0); Mean Corpuscular Hgb Conc. 33.6 g/dL (32.0-36.0); Mean Corpuscular Volume 93.5 fL (80.0-100.0); Monocytes # (auto) 1.1 10 ^3/uL (0-1.3); Monocytes % (auto) 12.7 % (0.0-12.0); Neutrophils # (auto) 6.7 10 ^3/uL (1.6-8.6); Neutrophils % (auto) 76.9 % (37.0-80.0); Platelet Count (auto) 148 10^3/uL (140-450); Red Blood Cells 3.28 10^6/uL (4.5-5.90); Red Cell Distribution Width 13.3 % (11.8-14.3); White Blood Cell 8.8 10^3/uL (4.4-10.8)
--- NOTE | 2024-06-29 19:57 | DVHPN2 ---
Subjective In bed resting, pain controlled Reviewed: Care Plan, H&P, Labs, Medications, Previous Orders, Radiology Changes from previous H/P or p: No Changes Objective Vitals Vital Signs Date Time Temp Pulse Resp B/P (MAP) Pulse Ox O2 Delivery O2 Flow Rate FiO2 06/29/24 17:00 98.1 79 18 98/60 (73) 95 98.1 06/29/24 08:00 Room Air* 0 21 Intake/Output Intake and Output 06/29/24 05:00 Intake Total 3090 ml Output Total 875 ml Balance 2215 ml Intake Oral 2890 ml IV Total 200 ml Output Urine Total 875 ml # Voids 4 General Appearance: Alert, Oriented X3, Cooperative, No acute distress HEENT: Atraumatic Lungs: Clear to auscultation, Normal air movement Cardiovascular: Regular rate, Normal S1, Normal S2 Abdomen: Normal bowel sounds, Soft, No tenderness Extremities: Other (Clean surgical wound over left hip with no bleeding/discharge) Neuro: Normal speech, Cranial nerves 3-12 NL Psych/Mental Status: Mental status NL, Mood NL Medications Current Medications Medications Dose Ordered Sig/Jonah Route Start Time Stop Time Status Last Admin Dose Admin Sodium Chloride 1,000 ml @ 60 mls/hr [id number] IV 06/26/24 03:45 06/29/24 06:21 60 MLS/HR Acetaminophen/ Hydrocodone Bitart 1 tab Q4HP PRN PO 06/26/24 03:45 06/29/24 00:27 1 TAB Ondansetron HCl 4 mg Q4HP PRN IV 06/26/24 03:45 Docusate Sodium 100 mg BIDPRN PRN PO 06/26/24 03:45 06/29/24 00:49 100 MG Enoxaparin Sodium 40 mg DAILY SC 06/26/24 10:00 06/29/24 08:58 40 MG Acetaminophen 650 mg Q6HP PRN PO 06/26/24 03:45 Morphine Sulfate 2 mg Q4HPRN PRN IV 06/26/24 03:45 06/29/24 16:04 2 MG Nitroglycerin 0.4 mg Q5MINP PRN SL 06/26/24 03:45 Morphine Sulfate 2 mg Q30M PRN IV 06/26/24 03:45 Diagnostic Test (Pha) 1 strip ACHS 06/26/24 17:00 06/29/24 18:24 1 STRIP Insulin Human Regular ACHS SC 06/26/24 17:00 06/29/24 18:26 8 UNITS Dextrose 50 ml UD PRN IV 06/26/24 15:00 Potassium Chloride/Dextrose/ Sod Cl 1,000 ml @ 150 mls/hr Q6H40M IV 06/27/24 08:30 06/29/24 13:50 150 MLS/HR Cefazolin Sodium 50 ml @ 50 mls/hr Q8HR IV 06/27/24 14:00 06/27/24 22:59 Cancel Cefazolin Sodium 50 ml @ 50 mls/hr Q8HR IV 06/27/24 14:00 06/29/24 16:01 50 MLS/HR Insulin Glargine 12 units HS SC 06/28/24 22:00 06/28/24 21:55 12 UNITS Laboratory Results Laboratory Tests 06/29/24 05:28 06/29/24 11:19 Chemistry Test 06/29/24 05:28 Albumin 2.8 g/dL (3.2-4.8) L Calcium Level 8.3 mg/dL (8.7-10.4) L Total Protein 5.0 g/dL (5.7-8.2) L LFT Test 06/29/24 05:28 Alanine Aminotransferase (ALT) 63 U/L (7-40) H Alkaline Phosphatase 164 U/L (46-116) H Aspartate Amino Transferase (AST) 27 U/L (13-40) Total Bilirubin 0.3 mg/dL (0.2-1.0) Assessment/Plan Assessment/Plan A 64-year-old male patient; with past medical history of diabetes mellitus type 2 and right hip surgery; who presented to the emergency department after a fall and was found to have left hip fracture. #Nondisplaced left intertrochanteric fracture due to mechanical fall s/p open reduction internal fixation of left intertrochanteric femur fracture on 06/27/2024 #Left hip pain due to fracture #Mechanical fall #Elevated LFTs due to the fracture -Fall precautions -Orthopedic surgery on board -Continue pain management as needed -Continue DVT prophylaxis -Physical therapy and Angle Shearer onboard -Avoid hepatotoxic agents -Continue monitoring #Normocytic anemia; unclear if it is inflammatory or caused by the fracture -Hemoglobin dropped; most likely related to the procedure -Continue monitoring CBC daily #Suspected LOUIE; most likely due to vasomotor nephropathy; worsened #Hypokalemia with hypocalcemia in the setting of suspected LOUIE; hypokalemia resolved; hypocalcemia worsened -Continue IV fluids -Replace electrolytes as needed -Avoid nephrotoxic agents -Continue monitoring #Diabetes mellitus type 2 -Insulin sliding scale with hypoglycemia protocol -Started long-acting insulin -Continue monitoring Plan discussed with: Patient My Orders Orders - MOISES SINGH MD Procedure Category Date Status Time Cleanse Wound With Ns NANCY 06/29/24 In Process 12:00 Date of Service: Jun 29, 2024 Billing Provider: MOISES SINGH MD Common Visit Codes: [id number] INP/OBS CARE(HIGH) MOISES SINGH MD Jun 29, 2024 19:57
[2024-06-30] VITALS (7 sets, daily range): BP systolic 98–148; BP diastolic 63–103; PULSE 60–84; RESP 16–20; TEMP 98.2–99; O2SAT 93–98
[2024-06-30] MEDS ORDERED: DEXTROSE (50%) 50ML SYRG IV PRN (11:00)
[2024-06-30] MEDS: ACCU-CHEK COMFORT CURVE STRIP VI SCH (11:30)
[2024-06-30] MEDS: InsuLIN REG 1unit/0.01ml Soln (100units/ml) SC SCH ×2 (12:02→21:57)
--- NOTE | 2024-06-30 12:03 | DVHDS2 ---
Discharge Summary Date of Admission Jun 26, 2024 at 03:41 Date of Discharge: Jun 30, 2024 Admitting Diagnosis Left hip fracture Labs/Diagnostic Data: Laboratory Results Test 06/30/24 05:46 06/29/24 11:19 06/29/24 05:28 06/26/24 03:15 POC Glucose 294 mg/dl (70-106) White Blood Count 8.8 10^3/uL (4.4-10.8) Red Blood Count 3.28 10^6/uL (4.5-5.90) Hemoglobin 10.3 g/dL (13.5-17.5) Hematocrit 30.7 % (41.0-53.0) Mean Corpuscular Volume 93.5 fL (80.0-100.0) Mean Corpuscular Hemoglobin 31.5 pg (28.0-32.0) Mean Corpuscular Hemoglobin Concent 33.6 g/dL (32.0-36.0) Red Cell Distribution Width 13.3 % (11.8-14.3) Platelet Count 148 10^3/uL (140-450) Mean Platelet Volume 8.0 fL (6.9-10.8) Neutrophils (%) (Auto) 76.9 % (37.0-80.0) Lymphocytes (%) (Auto) 8.9 % (10.0-50.0) Monocytes (%) (Auto) 12.7 % (0.0-12.0) Eosinophils (%) (Auto) 1.2 % (0.0-7.0) Basophils (%) (Auto) 0.3 % (0.0-2.0) Neutrophils # (Auto) 6.7 10 ^3/uL (1.6-8.6) Lymphocytes # (Auto) 0.8 10 ^3/uL (0.4-5.4) Monocytes # (Auto) 1.1 10 ^3/uL (0-1.3) Eosinophils # (Auto) 0.1 10 ^3/uL (0-0.8) Basophils # (Auto) 0 10 ^3/uL (0-0.2) Nucleated Red Blood Cells 0.0 % Sodium Level 134 mmol/L (136-145) Potassium Level 4.5 mmol/L (3.5-5.1) Chloride Level 102 mmol/L (98-107) Carbon Dioxide Level 26 mmol/L (20-31) Anion Gap 6 (5-15) Blood Urea Nitrogen 9 mg/dL (9-23) Creatinine 1.08 mg/dL (0.700-1.30) Glomerular Filtration Rate Calc 76 mL/min (>90) BUN/Creatinine Ratio 8.3 (10.0-20.0) Serum Glucose 309 mg/dL (74-106) Calcium Level 8.3 mg/dL (8.7-10.4) Total Bilirubin 0.3 mg/dL (0.2-1.0) Aspartate Amino Transferase (AST) 27 U/L (13-40) Alanine Aminotransferase (ALT) 63 U/L (7-40) Alkaline Phosphatase 164 U/L (46-116) Total Protein 5.0 g/dL (5.7-8.2) Albumin 2.8 g/dL (3.2-4.8) Prothrombin Time 11.7 sec (9.3-11.8) Prothrombin Time INR 1.11 (0.9-1.15) Activated Partial Thromboplast Time 24.5 SEC (24.5-34.5) Other Laboratory Tests 06/29/24 11:19 06/29/24 05:28 Brief Hx & Hospital Course: History of Present Illness The patient is a 64-year-old male with past medical history of hypertension who presented to [facility] ED for evaluation fall injury. Patient reports he was taking out the trash cans earlier today when he lost his balance and fell hitting in his left hip. Patient developed left hip pain, states he was unable to get up after the fall. Patient was seen and evaluated in the ED, laboratory data shows WBC 8.3, hemoglobin 11.6, hematocrit 34.5, platelets 157, sodium 143, potassium 3.2, BUN 9, creatinine 0.95, glucose 134, calcium 8.6, blood pressure 110/73, heart rate 74, temperature 98.7 F, O2 saturation 97% on room air. Abdomen/pelvis CT revealing nondisplaced fracture of the base of the left femoral neck with coxa vera angulation of the proximal left femur; there are 4 partially threaded screws through the right femoral neck with heart where complication. Please see medication orders section in the computer. On my assessment, patient denied chest pain, no headache, no dizziness, no loss of consciousness, no diaphoresis, no shortness of breaths, no nausea, no vomiting, fever, no chills. Patient was admitted for further evaluation and medical management. Course of hospitalization: The patient has underwent left hip ORIF on 06/27/2024. Postoperatively the patient's recovery has been uneventful. He has been ambulating with physical therapy several times a day with a walker. The patient also has noted uncontrolled blood sugars, which will be controlled prior to be discharged with increase in Lantus as well as regular insulin sliding scale. The patient's diet will also be changed to consistent carbohydrate. The patient was requesting to be discharged home. He states he was tolerating oral intake without any difficulty, has had positive bowel movement, and adequate pain management with oral medications. He states that he lives with both his and son who are available to assist him 24 hours a day. The patient will also be discharged home with home health services for continuation of physical therapy, wound care, and management of the patient's home medications including monitoring the patient's blood sugars. He is instructed to follow up with his PCP in 1-2 weeks, and if unable to, follow up with the discharge Clinic in one week. He will also follow up with Dr. Mederos, orthopedic surgeon at established appointment. He will be continued on pain management with Cunningham 5/325, as well as Colace to prevent opioid induced constipation. Physical examination General: Alert and Oriented x3. No acute distress. Well-nourished. Eyes: EOMI. Anicteric. HENT: Moist mucous membranes. Lungs: Clear to auscultation bilaterally. No accessory muscle use. Cardiovascular: Regular rate and rhythm. No murmur. No JVD. Abdomen: Soft, non-tender and non-distended. No palpable masses. Extremities: No edema. Non-tender. Left hip dressing dry and intact Skin: No rashes or lesions. Warm. Neurologic: No focal neurological deficits. CN II-XII grossly intact, but not individually tested. Psychiatric: Cooperative. Appropriate mood and affect. Total time spent with patient discussing and formulating plan of care: 35 minutes. This medical document was created using an electronic medical record system with [employer] system. Although this document has been carefully reviewed, there may still be some phonetic and typographical errors. These areas are purely typographical due to imperfections of the software programs, and do not reflect any compromise in the patient's medical care. Consults/Reason for consult Orthopedic surgery: Left hip fracture Operations or Procedures 06/27/2024: Left hip ORIF Condition at Discharge: Fair Final Diagnosis/Problems List Left hip ORIF Secondary Diagnosis: -mechanical fall -diabetes mellitus -primary hypertension -transaminitis Discharge Disposition: Home Discharge Instruct/Medications Diet: Consistent carbohydrate Activity: No Restrictions, As Tolerated Follow Up/Referral: Follow up with Orthopedic surgery in 1-2 weeks Follow up with PCP in 1-2 weeks, if unable to arrange appointment PCP, follow up with discharge Clinic in one week Medications: Continue all previous home medications Cunningham 5/325 q.6 hours as needed for [id number] pain not alleviated by Tylenol 36 Discharge Statement: "Patient was advised to return to the ER or call 911 if any headaches, dizziness, shortness of breath, chest pain, abdominal pain, bleeding, fevers, or worsening of medical condition. Patient was counseled about treatment plan, medications, possible side effects, patientverbalized understanding. All questions were answered to the best of my ability. This discharge took greater then 30 minutes in planning, reviewing documentation, counseling the patient, and discussing with other team members." DME: Diagnosis: Left hip ORIF ASSESSMENT ASSESSMENT Assessment Left hip ORIF Date of Service: Jun 30, 2024 Billing Provider: DAVON ADORNO NP Common Visit Codes: [id number]/[id number] DISCH DAY >30min DAVON ADORNO NP Jun 30, 2024 12:03
[2024-06-30] MEDS ORDERED: HYDR-4902 PO (15:42)
[2024-06-30] MEDS ORDERED: DOCU-94 PO (15:42)
[2024-06-30] MEDS: INSULIN LANTUS (GLARGINE) 1 /0.01ml (100units/ml) SC SCH (22:04)
[2024-07-01 01:00] VITALS: BP 102/59; PULSE 74; RESP 17; O2SAT 95
[2024-07-01 05:00] VITALS: BP 98/56; PULSE 74; RESP 18; O2SAT 92
[2024-07-01 05:48] LABS: Basophils # (auto) 0 10 ^3/uL (0-0.2); Basophils % (auto) 0.2 % (0.0-2.0); Eosinophils # (auto) 0.2 10 ^3/uL (0-0.8); Hematocrit 29.9 % (41.0-53.0); Hemoglobin 10.1 g/dL (13.5-17.5); Lymphocytes # (auto) 0.8 10 ^3/uL (0.4-5.4); Lymphocytes % (auto) 13.3 % (10.0-50.0); Mean Corpuscular Hemoglobin 31.5 pg (28.0-32.0); Mean Corpuscular Hgb Conc. 33.9 g/dL (32.0-36.0); Mean Corpuscular Volume 92.9 fL (80.0-100.0); Monocytes # (auto) 0.8 10 ^3/uL (0-1.3); Monocytes % (auto) 12.3 % (0.0-12.0); Neutrophils # (auto) 4.3 10 ^3/uL (1.6-8.6); Neutrophils % (auto) 70.2 % (37.0-80.0); Platelet Count (auto) 204 10^3/uL (140-450); Red Blood Cells 3.22 10^6/uL (4.5-5.90); Red Cell Distribution Width 13.2 % (11.8-14.3); White Blood Cell 6.2 10^3/uL (4.4-10.8)
[2024-07-01 05:57] LABS: Chloride 103 mmol/L (98-107); Potassium 4.8 mmol/L (3.5-5.1); Sodium 137 mmol/L (136-145)
[2024-07-01 05:58] LABS: Anion Gap 4 (5-15); Calcium 8.7 mg/dL (8.7-10.4); Carbon Dioxide 30 mmol/L (20-31)
[2024-07-01 06:04] LABS: BUN/Creatinine Ratio 15.5 (10.0-20.0); Blood Urea Nitrogen 17 mg/dL (9-23)
[2024-07-01 06:13] LABS: Glucose 207 mg/dL (74-106)
[2024-07-01 08:00] VITALS: PULSE 68; PULSE 78; RESP 17; O2SAT 92
[2024-07-01 09:00] VITALS: BP 108/54; PULSE 68; RESP 17; TEMP 97.1; O2SAT 92
[2024-07-01 11:08] VITALS: BP 108/54; PULSE 68; RESP 17; TEMP 98.2; O2SAT 92
== END 2024-07-01 12:45 | disposition home health service (06) | DRG 482 ==
LOC: EDBD 00:12 → ER 00:12 → TELE 03:41 → TELE-CENTR 18:09 → CENTRAL 19:06 → TELE-E-ADS 06-27 09:09 → EAST 06-30 06:48
PROVIDERS: ADMIT Nurse Practitioner Family; ATTEND Nurse Practitioner Acute Care
PROC: 0QS706Z Reposition Left Upper Femur with Intramedullary Internal Fixation Device, Open Approach (ICD-10-PCS; principal; 2024-06-27 07:15)
DX: S72.145A Nondisplaced intertrochanteric fracture of left femur, initial encounter for closed fracture (principal); S72.045A Nondisplaced fracture of base of neck of left femur, initial encounter for closed fracture; E87.6 Hypokalemia; E11.65 Type 2 diabetes mellitus with hyperglycemia; D64.9 Anemia, unspecified; W01.0XXA Fall on same level from slipping, tripping and stumbling without subsequent striking against object, initial encounter; I10 Essential (primary) hypertension; E83.51 Hypocalcemia; Y93.89 Activity, other specified; Y92.89 Other specified places as the place of occurrence of the external cause; Y99.8 Other external cause status; Z79.4 Long term (current) use of insulin
CPT/HCPCS: 36415; 71045; 73501; 74176; 76000; 80048; 80053; 82962; 83036; 85025; 85610; 85730; 86850; 86900; 86901; 97110; 97116; 97163; 97530; G0378; J1815; J2250; J2405; J3490